=== PATIENT | male | born 1985 | race African-American/Black ===

== ENCOUNTER 2018-12-07 10:35 | Emergency (ER) | payer OTHER ==
[~2018-12-07] VITALS: Ht 180.3 cm; Wt 98.0 kg
[2018-12-07 10:41] VITALS: BP 127/86
[2018-12-07] MEDS ORDERED: MOBIC15 MG PO (11:10)
[2018-12-07] MEDS ORDERED: CEPACOL SORE T1 EAC8 PO (11:10)
== END 2018-12-07 11:24 | disposition home or self-care (01) ==
LOC: ER 10:35
DX: J02.0 Streptococcal pharyngitis (principal); F17.210 Nicotine dependence, cigarettes, uncomplicated